=== PATIENT | female | born 1970 | race Caucasian/White ===

== ENCOUNTER 2016-12-26 15:01 | Emergency (ER) | payer OTHER | END 2016-12-26 16:22 | disposition home or self-care (01) | LOC: ER1 15:01 | DX: S67.191A Crushing injury of left index finger, initial encounter (principal); S67.195A Crushing injury of left ring finger, initial encounter; S60.022A Contusion of left index finger without damage to nail, initial encounter; S60.042A Contusion of left ring finger without damage to nail, initial encounter; W23.0XXA Caught, crushed, jammed, or pinched between moving objects, initial encounter; F17.210 Nicotine dependence, cigarettes, uncomplicated; Y92.009 Unspecified place in unspecified non-institutional (private) residence as the place of occurrence of the external cause | CPT/HCPCS: 73130; 99283 ==